=== PATIENT | male | born 1995 | race Caucasian/White ===

== ENCOUNTER 2021-10-14 01:28 | Emergency (ER) | payer MEDICARE, BC ==
[~2021-10-14] VITALS: Ht 165.1 cm; Wt 77.3 kg
[2021-10-14 02:09] LABS: BASO % 0.3 % (0.0-2.0); EOS # 0.2 K/mm3 (0.0-0.7); EOS % 2.5 % (0.0-4.0); GRAN # 2.7 K/mm3 (1.4-6.5); GRAN % 38.5 % (42.2-75.2); HEMOGLOBIN 15.3 g/dl (13.5-18.0); LYMPH # 3.4 K/mm3 (1.2-3.4); LYMPH % 49.6 % (20.0-51.0); MEAN CELL VOLUME 85 fl (80.0-100.0); MEAN CORPUSCULAR HEMOGLOBIN 30 pg (27-31); MEAN CORPUSCULAR HGB CONC 35 g/dl (33.0-37.0); MEAN PLATELET VOLUME 9.4 fl (7.4-10.4); MONO # 0.6 K/mm3 (0.1-0.6); MONO % 8.8 % (1.7-9.3); PLATELET COUNT 211 K/mm3 (130-400); RED BLOOD COUNT 5.15 M/mm3 (4.20-5.60); REDCELL DISTRIBUTION WIDTH-CV 12.6 % (11.5-14.5)
[2021-10-14 02:27] LABS: ALBUMIN 4.8 gm/dL (3.5-5.0); BILIRUBIN,TOTAL 0.3 mg/dL (0.2-1.2); CALCIUM 9.1 mg/dL (8.4-10.2); CREATININE, serum 0.87 mg/dL (0.72-1.25); POTASSIUM 3.5 mmol/L (3.5-4.5); TOTAL PROTEIN 7.1 gm/dL (6.2-8.1)
[2021-10-14 03:02] LABS: TRICYCLIC ANTIDEPRESS URINE NEGATIVE
[2021-10-14 03:15] VITALS: BP 154/76; PULSE 92; TEMP 97.8
== END 2021-10-14 03:15 | disposition home or self-care (01) ==
LOC: COL.ER 01:28
PROVIDERS: Nurse Practitioner
DX: M25.511 Pain in right shoulder (principal); M25.512 Pain in left shoulder; F19.10 Other psychoactive substance abuse, uncomplicated
CPT/HCPCS: J7030

== ENCOUNTER 2022-02-03 17:51 | Emergency (ER) | payer MEDICARE, BC ==
[~2022-02-03] VITALS: Ht 165.1 cm; Wt 81.8 kg
[2022-02-03 18:11] VITALS: TEMP 98.4
[2022-02-03 18:42] VITALS: BP 137/81; PULSE 96
== END 2022-02-03 18:42 | disposition home or self-care (01) ==
LOC: COL.ER 17:51
DX: F41.9 Anxiety disorder, unspecified (principal); F17.200 Nicotine dependence, unspecified, uncomplicated

== ENCOUNTER 2023-09-25 20:35 | Emergency (ER) | payer BC, MEDICARE ==
[~2023-09-25] VITALS: Ht 165.1 cm; Wt 79.5 kg
[2023-09-25 20:43] VITALS: TEMP 98.1
[2023-09-25] MEDS ORDERED: LORazepam 2 MG/ML 1 ML VIAL IV ONE (21:15)
[2023-09-25 22:01] LABS: COLLECTION METHOD CLEAN CATCH
[2023-09-25 22:06] LABS: BASO % 0.3 % (0.0-2.0); EOS # 0.2 K/mm3 (0.0-0.7); GRAN # 4.2 K/mm3 (1.4-6.5); GRAN % 53.3 % (42.2-75.2); HEMATOCRIT 48.4 % (42.0-52.0); HEMOGLOBIN 16.9 g/dl (13.5-18.0); LYMPH # 2.7 K/mm3 (1.2-3.4); LYMPH % 34.4 % (20.0-51.0); MEAN CELL VOLUME 87 fl (80.0-100.0); MEAN CORPUSCULAR HEMOGLOBIN 31 pg (27-31); MEAN CORPUSCULAR HGB CONC 35 g/dl (33.0-37.0); MEAN PLATELET VOLUME 9.4 fl (7.4-10.4); MONO # 0.8 K/mm3 (0.1-0.6); MONO % 9.6 % (1.7-9.3); PLATELET COUNT 260 K/mm3 (130-400); RED BLOOD COUNT 5.54 M/mm3 (4.20-5.60); REDCELL DISTRIBUTION WIDTH-CV 12.2 % (11.5-14.5)
[2023-09-25 22:07] LABS: URINE APPEARANCE CLEAR (CLEAR/HAZY); URINE BLOOD NEGATIVE (NEGATIVE); URINE COLOR Dark Yellow (YELLOW); URINE GLUCOSE NEGATIVE (NEGATIVE); URINE KETONE 1+ (NEGATIVE); URINE NITRATE NEGATIVE (NEGATIVE); URINE PROTEIN(semi-quant) NEGATIVE (NEGATIVE)
[2023-09-25 22:26] LABS: ALBUMIN 4.6 g/dL (3.5-5.0); BILIRUBIN,TOTAL 0.7 mg/dL (0.2-1.2); CALCIUM 9.5 mg/dL (8.4-10.2); CREATININE, serum 1.01 mg/dL (0.72-1.25); POTASSIUM 3.6 mEq/L (3.5-4.5); TOTAL PROTEIN 7.2 g/dl (6.2-8.1)
[2023-09-25 22:50] VITALS: BP 142/98; PULSE 93
== END 2023-09-25 22:50 | disposition home or self-care (01) ==
LOC: COL.ER 20:35
PROVIDERS: Emergency Medicine
DX: I10 Essential (primary) hypertension (principal); F10.90 Alcohol use, unspecified, uncomplicated; R45.851 Suicidal ideations; S80.12XA Contusion of left lower leg, initial encounter; S80.11XA Contusion of right lower leg, initial encounter; S10.91XA Abrasion of unspecified part of neck, initial encounter; X58.XXXA Exposure to other specified factors, initial encounter
CPT/HCPCS: J2060